=== PATIENT | female | born 1980 | race Caucasian/White ===

== ENCOUNTER 2018-02-01 20:34 | Emergency (ER) | payer MEDICAID ==
[2018-02-01] MEDS: Proparacaine 0.5% Ophth Soln 15 ML Bottle EYEBOTH STA (21:02)
--- NOTE | 2018-02-01 21:10 | EDM.PDOC ---
ED HPI GENERAL MEDICAL PROBLEM - General Chief Complaint: Eye Problems Stated Complaint: PT HURT RT EYE Time Seen by Provider: 02/01/18 20:35 Source of Information: Reports: Patient History Limitations: Reports: No Limitations - History of Present Illness INITIAL COMMENTS - FREE TEXT/NARRATIVE: HISTORY AND PHYSICAL: History of present illness: She states this evening she was doing yardwork and throwing away some leaves and twigs into a barrel when she reached down a branch had poked her in the right eye. His had light sensitivity and watering since that time. She does not wear contact lenses Unsure of last tetanus shot. Review of systems: As per history of present illness and below otherwise all systems reviewed and negative. Past medical history: As per history of present illness and as reviewed below otherwise noncontributory. Surgical history: As per history of present illness and as reviewed below otherwise noncontributory. Social history: No reported history of drug or alcohol abuse. Family history: As per history of present illness and as reviewed below otherwise noncontributory. Physical exam: General: Developed and well-nourished 37-year-old female. Alert and oriented. Nontoxic appearing and in no acute distress. HEENT: Atraumatic, normocephalic, pupils equal and reactive bilaterally, scleral injection to the right I, negative for conjunctival pallor or scleral icterus, no garcia intact, no ocular impingement or pain with movement. Her mucous membranes are moist, throat clear, neck supple, nontender, trachea midline. No drooling or trismus noted. No meningeal signs Lungs: Clear to auscultation, breath sounds equal bilaterally, chest nontender. Heart: S1S2, regular rate and rhythm without overt murmur Abdomen: Soft, nondistended, nontender. Negative for masses or hepatosplenomegaly. Negative for costovertebral tenderness. Pelvis: Stable nontender. Genitourinary: Deferred. Rectal: Deferred. Skin: Intact, warm, dry. No lesions or rashes noted. Extremities: Atraumatic, negative for cords or calf pain. Neurovascular unremarkable. Neuro: Awake, alert, oriented. Cranial nerves II through XII unremarkable. Cerebellum unremarkable. Motor and sensory unremarkable throughout. Exam nonfocal. Notes: Proparacaine eyedrops were used to anesthetize the eye. Fluorescein dye was used during the eye exam. Does appear to have a corneal abrasion at the 2 to 3: 00 on the iris.. Patient tolerated well. I was irrigated afterwards. No intraocular pain with movement Diagnostics: None Therapeutics: Eye exam, proparacaine, Tdap Prescription: Erythromycin Ointment Shawnee (#6) Impression: Corneal abrasion, right Plan: 1. Use the erythromycin ointment every 4 hours while awake over the next 5 days. 2. Tylenol and/or ibuprofen as needed for pain management. A limited amount of Shawnee has been prescribed for you for tonight and tomorrow. If he continued to have pain and discomfort please follow-up with the department store general manager tomorrow at [facility]. This medication will cause drowsiness so do not take it will driving her needing to be functioning outside of the house. 3. Return to the ED as needed and as discussed. Definitive disposition and diagnosis as appropriate pending reevaluation and review of above. - Related Data Allergies Allergy/AdvReac Type Severity Reaction Status Date / Time No Known Allergies Allergy Verified 02/01/18 21:02 Home Meds: Home Meds Acetaminophen/HYDROcodone [Shawnee 325-5 MG] 1 tab PO Q4H PRN #6 tablet 02/01/18 [ Rx] Erythromycin Base [Erythromycin 0.5% Ophth Oint] 1 applic OP Q4H 5 Days #1 tube 02/01/18 [Rx] ED ROS GENERAL - Review of Systems Review Of Systems: ROS reveals no pertinent complaints other than HPI. ED EXAM GENERAL W FULL EYE - Physical Exam Exam: See Below (See dictation) Course - Orders/Labs/Meds Orders: Active Orders 24 hr Category Date Time Status Communication Order [RC] STAT Care 02/01/18 20:36 Active Vaccines to be Administered [RC] PER UNIT ROUTINE Care 02/01/18 21:10 Ordered Diphth,Pertuss(Acell),Tet Vac [Adacel] Med 02/01/18 21:10 Once 0.5 ml IM .ONCE ONE Meds: Medications Discontinued Medications Generic Name Dose Route Start Last Admin Trade Name Freq PRN Reason Stop Dose Admin Proparacaine HCl 1 ml 02/01/18 20:35 02/01/18 21:02 Proparacaine 0.5% Ophth Soln EYEBOTH 02/01/18 20:36 1 ml NOW STA Administration Departure - Departure Time of Disposition: 21:09 Disposition: Home, Self-Care 01 Clinical Impression: Corneal abrasion Qualifiers: Encounter type: initial encounter Laterality: right Qualified Code(s): S05.01XA - Injury of conjunctiva and corneal abrasion without foreign body, right eye, initial encounter - Discharge Information Prescriptions: Acetaminophen/HYDROcodone [Shawnee 325-5 MG] 1 tab PO Q4H PRN #6 tablet PRN Reason: Pain Erythromycin Base [Erythromycin 0.5% Ophth Oint] 1 applic OP Q4H 5 Days #1 tube Instructions: Corneal Abrasion, [id number] Referrals: PCP,None [Primary Care Provider] - Forms: ED Department Discharge Additional Instructions: The following information is given to patients seen in the emergency department who are being discharged to home. This information is to outline your options for follow-up care. We provide all patients seen in our emergency department with a follow-up referral. The need for follow-up, as well as the timing and circumstances, are variable depending upon the specifics of your emergency department visit. If you don't have a primary care physician on staff, we will provide you with a referral. We always advise you to contact your personal physician following an emergency department visit to inform them of the circumstance of the visit and for follow-up with them and/or the need for any referrals to a consulting specialist. The emergency department will also refer you to a specialist when appropriate. This referral assures that you have the opportunity for follow-up care with a specialist. All of these measure are taken in an effort to provide you with optimal care, which includes your follow-up. Under all circumstances we always encourage you to contact your private physician who remains a resource for coordinating your care. When calling for follow-up care, please make the office aware that this follow-up is from your recent emergency room visit. If for any reason you are refused follow-up, please contact the [facility] Emergency Department at and asked to speak to the emergency department charge nurse. [facility] [address], [place] [address] [id number] 1. Use the erythromycin ointment every 4 hours while awake over the next 5 days. 2. Tylenol and/or ibuprofen as needed for pain management. A limited amount of Shawnee has been prescribed for you for tonight and tomorrow. If you continued to have pain and discomfort please follow-up with the department store general manager tomorrow at [facility]. This medication will cause drowsiness so do not take it will driving her needing to be functioning outside of the house. 3. Return to the ED as needed and as discussed. - My Orders Last 24 Hours: My Active Orders 02/01/18 20:36 Communication Order [RC] STAT 02/01/18 21:10 Vaccines to be Administered [RC] PER UNIT ROUTINE Diphth,Pertuss(Acell),Tet Vac [Adacel] 0.5 ml IM .ONCE ONE - Assessment/Plan Last 24 Hours: My Active Orders 02/01/18 20:36 Communication Order [RC] STAT 02/01/18 21:10 Vaccines to be Administered [RC] PER UNIT ROUTINE Diphth,Pertuss(Acell),Tet Vac [Adacel] 0.5 ml IM .ONCE ONE
[2018-02-01] MEDS: Diphtheria,Pertussis(Acell),Tetanus Vaccine 0.5 ML Syringe IM ONE (21:32)
== END 2018-02-01 21:40 | disposition home or self-care (01) ==
LOC: MW.ED 20:34
DX: S05.01XA Injury of conjunctiva and corneal abrasion without foreign body, right eye, initial encounter (principal); Z23 Encounter for immunization; W22.8XXA Striking against or struck by other objects, initial encounter
CPT/HCPCS: 90471; 90715; 99283; 99283-25

== ENCOUNTER 2019-04-10 08:38 | Emergency (ER) | payer SELFPAY ==
[2019-04-10] MEDS ORDERED: Sodium Chloride 0.9% 1,000 ML IV ONE (08:49)
[2019-04-10] MEDS ORDERED: Ondansetron 4 MG/2 ML SDV IVPUSH ONE (08:49)
[2019-04-10] MEDS ORDERED: Ketorolac 30 MG/ML SDV IVPUSH ONE (09:10)
[2019-04-10 09:36] LABS: BLOOD UREA NITROGEN,BUN 14 mg/dL (7.0-18.0); CARBON DIOXIDE,CO2 20.8 mmol/L (21.0-32.0); CHLORIDE,CL 97 mmol/L (98-107); GLUCOSE RANDOM 91 mg/dL (74-106); LIPASE 106 U/L (73-393); POTASSIUM,K 3.3 mmol/L (3.5-5.1); SODIUM,NA 134 mmol/L (136-145)
--- NOTE | 2019-04-10 10:02 | CR ---
INDICATION: Chest pain, dyspnea. TECHNIQUE: Chest 1 view COMPARISON: None. FINDINGS: No focal consolidation, pleural effusion, or pneumothorax. Normal heart size and pulmonary vascularity. IMPRESSION: No acute cardiopulmonary findings. Dictated by Tanja Berg MD @ Apr 10 2019 9:59AM Signed by Dr. Tanja Berg @ Apr 10 2019 10:00AM
--- NOTE | 2019-04-10 10:09 | CT ---
INDICATION: Back pain. Vomiting for 5 days. Diarrhea and hematemesis. TECHNIQUE: Volumetric helical scanning of the abdomen and pelvis was performed without contrast material. Coronal and sagittal reconstructions were obtained. COMPARISON: None FINDINGS: There is no evidence of bowel obstruction or inflammation. No free fluid is demonstrated. The liver is normal in size, shape and attenuation. No bile duct dilation is evident. The spleen is within normal limits. The adrenal glands are unremarkable. The pancreas is within normal limits. The kidneys are unremarkable. No lymphadenopathy is evident. The uterus and ovaries are unremarkable. The lung bases are clear. A 5 mm ground-glass nodule in the left lower lobe is noted on image 13 of series 201. The heart is normal in size. IMPRESSION: 1. Negative CT of the abdomen and pelvis. 2. 5 mm ground-glass nodule in the left lower lobe base. In accordance with Fleischner Society Guidelines, this is considered benign. No further evaluation is necessary. Please note that all CT scans at this facility use dose modulation, iterative reconstruction, and/or weight-based dosing when appropriate to reduce radiation dose to as low as reasonably achievable. Dictated by Ziggy Gonzalez MD @ Apr 10 2019 9:55AM Signed by Dr. Ziggy Gonzalez @ Apr 10 2019 10:06AM
--- NOTE | 2019-04-10 10:24 | EDM.PDOC ---
ED HPI GENERAL MEDICAL PROBLEM - General Chief Complaint: Gastrointestinal Problem Stated Complaint: VOMITING AND DIARREA Time Seen by Provider: 04/10/19 10:21 Source of Information: Reports: Patient, Family - History of Present Illness INITIAL COMMENTS - FREE TEXT/NARRATIVE: HISTORY AND PHYSICAL: History of present illness: []A shunt presents with nausea and vomiting diarrhea She has had multiple sick contacts in her family which began with cough that she has had for over 2 weeks no fever chills or sweats however she has had nausea vomiting and diarrhea over the last 2 days last bowel movement was last night and complaints of low back pain which she does have chronic low back pain that is 5 out of 10 nonradiating at current No chest pain shortness breath headache dizziness palpitation no bowel or urine symptoms Review of systems: As per history of present illness and below otherwise all systems reviewed and negative. Past medical history: As per history of present illness and as reviewed below otherwise noncontributory. Surgical history: As per history of present illness and as reviewed below otherwise noncontributory. Social history: No reported history of drug or alcohol abuse. Family history: As per history of present illness and as reviewed below otherwise noncontributory. Physical exam: HEENT: Atraumatic, normocephalic, pupils reactive, negative for conjunctival pallor or scleral icterus, mucous membranes moist, throat clear, neck supple, nontender, trachea midline. Lungs: Clear to auscultation, breath sounds equal bilaterally, chest nontender. Heart: S1S2, regular, negative for clicks, rubs, or JVD. Abdomen: Soft, nondistended, nontender. Negative for masses or hepatosplenomegaly. Negative for costovertebral tenderness. Pelvis: Stable nontender. Genitourinary: Deferred. Rectal: Deferred. Extremities: Atraumatic, negative for cords or calf pain. Neurovascular unremarkable. Neuro: Awake, alert, oriented. Cranial nerves II through XII unremarkable. Cerebellum unremarkable. Motor and sensory unremarkable throughout. Exam nonfocal. Diagnostics: [TBC CMP UA hCG Chest [address] abdomen pelvis no contrast ] able to provide stool sample Therapeutics: [ normal saline Zofran Toradol Symptomatically improved with above Cipro Toradol Zofran ] Impression: gastroenteritis Persistent cough Chronic low back pain mild dehydration Definitive disposition and diagnosis as appropriate pending reevaluation and review of above. 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 Musculoskeletal History: Reports: None Neurological History: Reports: None Psychiatric History: Reports: None Endocrine/Metabolic History: Reports: None Hematologic History: Reports: None Immunologic History: Reports: None Oncologic (Cancer) History: Reports: None Dermatologic History: Reports: None - Past Surgical History Head Surgeries/Procedures: Reports: None HEENT Surgical History: Reports: None Cardiovascular Surgical History: Reports: None Respiratory Surgical History: Reports: None GI Surgical History: Reports: None Female Surgical History: Reports: None Endocrine Surgical History: Reports: None Neurological Surgical History: Reports: None Musculoskeletal Surgical History: Reports: None Oncologic Surgical History: Reports: None Dermatological Surgical History: Reports: None Social & Family History - Family History Family Medical History: Noncontributory - Tobacco Use Smoking Status *Q: Current Every Day Smoker Years of Tobacco use: 26 Packs/Tins Daily: 0.9 - Caffeine Use Caffeine Use: Reports: Coffee, Soda - Recreational Drug Use Recreational Drug Use: No ED ROS GENERAL - Review of Systems Review Of Systems: See Below ED EXAM, GENERAL - Physical Exam Exam: See Below Course - Vital Signs Last Recorded V/S: Last Vital Signs Temp 98.2 F 04/10/19 08:47 Pulse 90 04/10/19 08:47 Resp 18 04/10/19 08:47 BP 132/75 04/10/19 08:47 Pulse Ox 94 L 04/10/19 08:47 - Orders/Labs/Meds Labs: Laboratory Tests 04/10/19 04/10/19 04/10/19 Range/Units 08:49 09:00 09:00 WBC 4.81 (4.0-11.0) K/uL RBC 5.00 (4.30-5.90) M/uL Hgb 14.9 (12.0-16.0) g/dL Hct 43.6 (36.0-46.0) % MCV 87.2 (80.0-98.0) fL MCH 29.8 (27.0-32.0) pg MCHC 34.2 (31.0-37.0) g/dL RDW Std Deviation 39.4 (28.0-62.0) fl RDW Coeff of Skylar 12 (11.0-15.0) % Plt Count 140 L (150-400) K/uL MPV 10.00 (7.40-12.00) fL Neut % (Auto) 68.2 (48.0-80.0) % Lymph % (Auto) 18.1 (16.0-40.0) % Gentry % (Auto) 13.5 (0.0-15.0) % Eos % (Auto) 0.0 (0.0-7.0) % Baso % (Auto) 0.2 (0.0-1.5) % Neut # (Auto) 3.3 (1.4-5.7) K/uL Lymph # (Auto) 0.9 (0.6-2.4) K/uL Gentry # (Auto) 0.7 (0.0-0.8) K/uL Eos # (Auto) 0.0 (0.0-0.7) K/uL Baso # (Auto) 0.0 (0.0-0.1) K/uL Nucleated RBC % 0.0 /100WBC Nucleated RBCs # 0 K/uL Sodium (136-145) mmol/L Potassium (3.5-5.1) mmol/L Chloride (98-107) mmol/L Carbon Dioxide (21.0-32.0) mmol/L BUN (7.0-18.0) mg/dL Creatinine (0.6-1.0) mg/dL Est Cr Clr Drug Dosing mL/min Estimated GFR (MDRD) ml/min Glucose (74-106) mg/dL Calcium (8.5-10.1) mg/dL Total Bilirubin (0.2-1.0) mg/dL AST (15-37) IU/L ALT (14-63) IU/L Alkaline Phosphatase (46-116) U/L Total Protein (6.4-8.2) g/dL Albumin (3.4-5.0) g/dL Globulin (2.6-4.0) g/dL Albumin/Globulin Ratio (0.9-1.6) Lipase (73-393) U/L Urine Color YELLOW Urine Appearance CLEAR Urine pH 5.5 (5.0-8.0) Ur Specific Hurley >= 1.030 (1.001-1.035) Urine Protein 100 H (NEGATIVE) mg/dL Urine Glucose (UA) NEGATIVE (NEGATIVE) mg/dL Urine Ketones >=80 (NEGATIVE) mg/dL Urine Occult Blood SMALL H (NEGATIVE) Urine Nitrite NEGATIVE (NEGATIVE) Urine Bilirubin MODERATE H (NEGATIVE) Urine Ictotest Urine Urobilinogen 0.2 (<2.0) EU/dL Ur Leukocyte Esterase NEGATIVE (NEGATIVE) Urine RBC 0-2 (0-2/HPF) Urine WBC 0-2 (0-5/HPF) Ur Epithelial Cells FEW (NONE-FEW) Urine Bacteria FEW (NEGATIVE) Urine Mucus LIGHT (NONE-MOD) Urinalysis Comment Urine HCG, Qual NEGATIVE (NEGATIVE) 04/10/19 Range/Units 09:00 WBC (4.0-11.0) K/uL RBC (4.30-5.90) M/uL Hgb (12.0-16.0) g/dL Hct (36.0-46.0) % MCV (80.0-98.0) fL MCH (27.0-32.0) pg MCHC (31.0-37.0) g/dL RDW Std Deviation (28.0-62.0) fl RDW Coeff of Skylar (11.0-15.0) % Plt Count (150-400) K/uL MPV (7.40-12.00) fL Neut % (Auto) (48.0-80.0) % Lymph % (Auto) (16.0-40.0) % Gentry % (Auto) (0.0-15.0) % Eos % (Auto) (0.0-7.0) % Baso % (Auto) (0.0-1.5) % Neut # (Auto) (1.4-5.7) K/uL Lymph # (Auto) (0.6-2.4) K/uL Gentry # (Auto) (0.0-0.8) K/uL Eos # (Auto) (0.0-0.7) K/uL Baso # (Auto) (0.0-0.1) K/uL Nucleated RBC % /100WBC Nucleated RBCs # K/uL Sodium 134 L (136-145) mmol/L Potassium 3.3 L (3.5-5.1) mmol/L Chloride 97 L (98-107) mmol/L Carbon Dioxide 20.8 L (21.0-32.0) mmol/L BUN 14 (7.0-18.0) mg/dL Creatinine 0.9 (0.6-1.0) mg/dL Est Cr Clr Drug Dosing 72.40 mL/min Estimated GFR (MDRD) > 60.0 ml/min Glucose 91 (74-106) mg/dL Calcium 8.1 L (8.5-10.1) mg/dL Total Bilirubin 0.2 (0.2-1.0) mg/dL AST 37 (15-37) IU/L ALT 24 (14-63) IU/L Alkaline Phosphatase 69 (46-116) U/L Total Protein 7.1 (6.4-8.2) g/dL Albumin 3.8 (3.4-5.0) g/dL Globulin 3.3 (2.6-4.0) g/dL Albumin/Globulin Ratio 1.2 (0.9-1.6) Lipase 106 (73-393) U/L Urine Color Urine Appearance Urine pH (5.0-8.0) Ur Specific Hurley (1.001-1.035) Urine Protein (NEGATIVE) mg/dL Urine Glucose (UA) (NEGATIVE) mg/dL Urine Ketones (NEGATIVE) mg/dL Urine Occult Blood (NEGATIVE) Urine Nitrite (NEGATIVE) Urine Bilirubin (NEGATIVE) Urine Ictotest Urine Urobilinogen (<2.0) EU/dL Ur Leukocyte Esterase (NEGATIVE) Urine RBC (0-2/HPF) Urine WBC (0-5/HPF) Ur Epithelial Cells (NONE-FEW) Urine Bacteria (NEGATIVE) Urine Mucus (NONE-MOD) Urinalysis Comment Urine HCG, Qual (NEGATIVE) Meds: Medications Discontinued Medications Generic Name Dose Route Start Last Admin Trade Name Freq PRN Reason Stop Dose Admin Sodium Chloride 1,000 mls @ 999 mls/hr 04/10/19 08:49 04/10/19 09:03 Normal Saline IV 04/10/19 09:49 999 mls/hr STAT ONE Administration Ketorolac Tromethamine 30 mg 04/10/19 09:10 04/10/19 09:18 Toradol IVPUSH 04/10/19 09:11 30 mg ONETIME ONE Administration Ondansetron HCl 8 mg 04/10/19 08:49 04/10/19 09:03 Zofran IVPUSH 04/10/19 08:50 8 mg ONETIME ONE Administration Departure - Departure Time of Disposition: 10:23 Disposition: Home, Self-Care 01 Condition: Good Clinical Impression: Gastroenteritis, Low back pain, Nausea & vomiting - Discharge Information Referrals: PCP,None [Primary Care Provider] - Additional Instructions: The following information is given to patients seen in the emergency department who are being discharged to home. This information is to outline your options for follow-up care. We provide all patients seen in our emergency department with a follow-up referral. The need for follow-up, as well as the timing and circumstances, are variable depending upon the specifics of your emergency department visit. If you don't have a primary care physician on staff, we will provide you with a referral. We always advise you to contact your personal physician following an emergency department visit to inform them of the circumstance of the visit and for follow-up with them and/or the need for any referrals to a consulting specialist. The emergency department will also refer you to a specialist when appropriate. This referral assures that you have the opportunity for follow-up care with a specialist. All of these measure are taken in an effort to provide you with optimal care, which includes your follow-up. Under all circumstances we always encourage you to contact your private physician who remains a resource for coordinating your care. When calling for follow-up care, please make the office aware that this follow-up is from your recent emergency room visit. If for any reason you are refused follow-up, please contact the [facility] emergency department at and asked to speak to the emergency department charge nurse.
[2019-04-10] MEDS ORDERED: Levofloxacin 500 MG Tab PO ONE (10:59)
== END 2019-04-10 11:09 | disposition home or self-care (01) ==
LOC: MW.ED 08:38
DX: K52.9 Noninfective gastroenteritis and colitis, unspecified (principal); M54.5 Low back pain; G89.29 Other chronic pain; E86.0 Dehydration; R05 Cough; F17.210 Nicotine dependence, cigarettes, uncomplicated
CPT/HCPCS: 36415; 71045; 74176; 80053; 81001; 81025; 83690; 85025; 96361; 96374; 96375; 99284; A9270; J1885; J2405; J7040